=== PATIENT | male | born 1975 | race Caucasian/White ===

== ENCOUNTER 2018-01-03 15:52 | Emergency (ER) | payer BC ==
[~2018-01-03] VITALS: Ht 182.9 cm; Wt 225.0 kg
[~2018-01-03 15:52] MED LIST: CIPR-255 PO
[2018-01-03 15:56] VITALS: TEMP 36.6; Ht 182.9 cm; Wt 225.0 kg
[2018-01-03] MEDS ORDERED: KETOROLAC TROMETHAMINE 30 MG/ML VIAL IV STA (16:09)
[2018-01-03] MEDS ORDERED: SODIUM CHLORIDE 0.9% 1000ML 1,000 ML IV STA (16:09)
--- NOTE | 2018-01-03 16:45 | EMERGENCY ROOM VISIT NOTE ---
ED Visit Note First contact with patient: 16:00 CHIEF COMPLAINT: Right flank pain HISTORY OF PRESENTING ILLNESS: This is a 42-year-old male who presents to the emergency department with complaint of right flank pain that has been getting progressively worse over the past 2 days. He states he was seen here about a month ago and was diagnosed with a kidney stone on the right side. He states he was sent home with medications for the kidney stone and was also placed on Cipro to treat possible UTI, he states he completed the course of antibiotics. He states that the pain resolved a few days later, and he did not ever follow- up with the urologist. He also states he has not been straining his urine so he does not know if he passed the stone. He states the pain is a constant dull ache, with intermittent intense stabbing pains, worse with movement, better with rest, currently rates as 3/10. He has taken Tylenol for the pain with some improvement. He has not noticed any blood in his urine, but does note that his urine has been darker than usual. He denies any fevers or chills. He has had associated nausea and states that he has vomited several times due to the pain. He denies chest pain, shortness of breath, dizziness or syncope. He denies any unusual rash. REVIEW OF SYSTEMS: A complete 10 point review of systems was reviewed with the patient with pertinent positives and negatives as per history of present illness. All else were negative. PAST MEDICAL HISTORY: Kidney stone. No other significant past medical or surgical history. SOCIAL HISTORY: Lives at home. He denies tobacco use. ALLERGIES: No known allergies. PHYSICAL EXAM: CONSTITUTIONAL: Pleasant and cooperative. No acute distress, but appears uncomfortable. Mildly dehydrated, but otherwise well appearing and well nourished. HEENT: Normocephalic, atraumatic. Pupils equal, round and reactive to light, EOMI. TMs normal. Pharynx normal. Tacky mucous membranes. NECK: Supple, full active range of motion without discomfort. RESPIRATORY: Clear to auscultation bilaterally with no wheezing, crackles, rhonchi or stridor. Equal expansion bilaterally. CARDIOVASCULAR: Regular rate and rhythm with no murmurs, rubs or gallops. Normal peripheral perfusion. No edema. GASTROINTESTINAL: Right flank and right lower quadrant tenderness to palpation. The abdomen is otherwise soft, nontender, nondistended. Morbidly obese abdomen. No palpable masses or HSM. Bowel sounds present in all quadrants. Mild right-sided CVA tenderness, no left-sided CVA tenderness. MUSCULOSKELETAL: Full range of motion of all joints without discomfort. INTEGUMENTARY: No rash or other significant dermatologic conditions noted. NEUROLOGIC: Alert and oriented X 4 with normal affect. Normal strength and sensation in all 4 extremities. No focal neurologic deficits noted. Normal speech. Normal gait observed. ED COURSE AND MEDICAL DECISION MAKING: CC: Patient presenting with complaint of right flank pain DIFFERENTIAL DIAGNOSIS: Includes, but not limited to ureteral stone, UTI, pyelonephritis, infected stone, acute kidney injury, dehydration, among others. INTERPRETATION OF LABS: No leukocytosis, mild anemia, normal platelets, no significant electrolyte abnormalities, normal renal function. UA noting hematuria, no infection. IMAGING: ULTRASOUND KIDNEYS AND BLADDER CLINICAL HISTORY: Recently diagnosed obstructing right ureteral calculus. Assess right-sided hydronephrosis. COMPARISON STUDY: Abdominal CT dated 12/08/2017. TECHNIQUE: Real-time, grayscale, and color flow sonography of the kidneys and bladder is performed. Images are reviewed in the transverse and longitudinal planes. The examination is degraded by large body habitus. FINDINGS: Kidneys: The kidneys are normal in size and echotexture. The right kidney measures 12.6 x 6.7 x 8.1 cm and the left kidney measures 12.0 x 6.1 x 5.7 cm. No hydronephrosis is clearly identified. No shadowing renal calculi are seen. There is no sonographic evidence of contour deforming renal mass lesion. No perinephric fluid is identified. Bladder: The bladder is partially decompressed and grossly normal in appearance. Bilateral ureteral jets were seen. IMPRESSION: 1. The kidneys are normal in size and without hydronephrosis. 2. The bladder is partially decompressed. Both ureteral jets were seen. ----- KUB CLINICAL HISTORY: Right flank pain. Nephrolithiasis. FINDINGS: 3 AP supine abdominal radiographs are correlated with abdominal CT dated 12/08/2017. The examination is degraded by large body habitus. There is an 8 mm calcification projecting over the mid right ureter just above the transverse process of L4. This likely represents an obstructing ureteral stone when correlated with the 12/08/2017 CT scan. No additional calcifications are seen projecting over either kidney. There is no bowel obstruction. The bony structures appear intact. IMPRESSION: There is an 8 mm calcification projecting over the mid right ureter, likely representing an obstructing ureteral stone when correlated with the recent CT scan. MEDICATION RECONCILIATION: I attest that I have personally reviewed the patient 's current medication list. INITIAL VITAL SIGNS REVIEW: I reviewed the patient's initial vital signs and interpret them as follows: T: Afebrile; BP: Hypertensive; HR: Mildly tachycardic; RR: Within normal limits; Pulse Ox: Within normal limits on room air. Blood pressure screening: The patient was found to have an elevated blood pressure, which was felt to be situational. SUMMARY: Patient was evaluated at bedside, history and physical exam performed. Patient is alert and oriented, in no acute mildly uncomfortable, resting in the stretcher. Patient does have right flank and lower quadrant tenderness to palpation, the abdomen is otherwise benign. No acute abdomen. Orders were placed at bedside for labs, UA, IV fluids for hydration, IV Toradol for pain, KUB and renal ultrasound to evaluate for ureteral stone. Patient discussed with Dr. Stewart, who agrees with my assessment and plan. Labs and imaging reviewed as above. KUB consistent with ureteral stone, but ultrasound shows no evidence of hydronephrosis. Normal renal function and no UTI on lab workup. Patient reassessed multiple times throughout ED stay, he is remained stable, hypertension and tachycardia resolved after pain medication and fluids, and his pain is resolved after IV Toradol. Patient was updated on all results and plan for discharge, he was provided with referral to urology and encouraged to follow-up this week. He was provided with a urine strainer and educated regarding its use. Rx for Roscoe, Zofran, and naproxen were sent to pharmacy, patient was educated regarding these medications. Patient was also given strict return precautions should his symptoms worsen, he verbalized understanding. Patient was discharged home in stable condition and ambulatory. (Betty Abdi CRNP) First contact with patient: 16:00 (Levi Stewart M.D.) Current/Historical Medications Scheduled Naproxen (Naprosyn), 500 MG PO BID Ondasetron Odt (Zofran Odt), 4 MG SL Q6H Scheduled PRN Hydrocodone/Acetaminophen 5MG/325MG (Roscoe 5MG/325MG), 1-2 TABLET PO Q6H PRN for svr Allergies Coded Allergies: No Known Allergies (Unverified , 12/08/17) Vital Signs Date Time Temp Pulse Resp B/P (MAP) Pulse Ox O2 Delivery O2 Flow Rate FiO2 01/03/18 19:46 75 18 122/67 98 01/03/18 17:57 70 20 102/63 97 Room Air 01/03/18 16:58 84 01/03/18 15:56 36.6 93 20 183/96 95 Room Air (Levi Stewart M.D.) Laboratory Results 01/03/18 16:40 Red Blood Count 4.29, Mean Corpuscular Volume 92.1, Mean Corpuscular Hemoglobin 30.8, Mean Corpuscular Hemoglobin Concent 33.4, Mean Platelet Volume 9.4, Neutrophils (%) (Auto) 71.1, Lymphocytes (%) (Auto) 18.5, Monocytes (%) (Auto) 6.9, Eosinophils (%) (Auto) 3.0, Basophils (%) (Auto) 0.3, Neutrophils # (Auto) 6.46, Lymphocytes # (Auto) 1.68, Monocytes # (Auto) 0.63, Eosinophils # (Auto) 0.27, Basophils # (Auto) 0.03 01/03/18 16:40 Test 01/03/18 16:40 01/03/18 18:15 White Blood Count 9.09 K/uL (4.8-10.8) Red Blood Count 4.29 M/uL (4.7-6.1) Hemoglobin 13.2 g/dL (14.0-18.0) Hematocrit 39.5 % (42-52) Mean Corpuscular Volume 92.1 fL (80-100) Mean Corpuscular Hemoglobin 30.8 pg (25-34) Mean Corpuscular Hemoglobin Concent 33.4 g/dl (32-36) Platelet Count 263 K/uL (130-400) Mean Platelet Volume 9.4 fL (7.4-10.4) Neutrophils (%) (Auto) 71.1 % Lymphocytes (%) (Auto) 18.5 % Monocytes (%) (Auto) 6.9 % Eosinophils (%) (Auto) 3.0 % Basophils (%) (Auto) 0.3 % Neutrophils # (Auto) 6.46 K/uL (1.4-6.5) Lymphocytes # (Auto) 1.68 K/uL (1.2-3.4) Monocytes # (Auto) 0.63 K/uL (0.11-0.59) Eosinophils # (Auto) 0.27 K/uL (0-0.5) Basophils # (Auto) 0.03 K/uL (0-0.2) RDW Standard Deviation 43.8 fL (36.4-46.3) RDW Coefficient of Variation 13.2 % (11.5-14.5) Immature Granulocyte % (Auto) 0.2 % Immature Granulocyte # (Auto) 0.02 K/uL (0.00-0.02) Anion Gap 5.0 mmol/L (3-11) Est Creatinine Clear Calc Drug Dose 204.3 ml/min Estimated GFR () 120.1 Estimated GFR (Non- 103.6 BUN/Creatinine Ratio 16.2 (10-20) Calcium Level 8.6 mg/dl (8.5-10.1) Urine Color YELLOW Urine Appearance CLEAR (CLEAR) Urine pH 5.5 (4.5-7.5) Urine Specific Morgan 1.024 (1.000-1.030) Urine Protein NEG (NEG) Urine Glucose (UA) NEG (NEG) Urine Ketones TRACE (NEG) Urine Occult Blood 1+ (NEG) Urine Nitrite NEG (NEG) Urine Bilirubin NEG (NEG) Urine Urobilinogen NEG (NEG) Urine Leukocyte Esterase TRACE (NEG) Urine WBC (Auto) 1-5 /hpf (0-5) Urine RBC (Auto) 10-30 /hpf (0-4) Urine Hyaline Casts (Auto) 1-5 /lpf (0-5) Urine Epithelial Cells (Auto) 10-20 /lpf (0-5) Urine Bacteria (Auto) NEG (NEG) (Levi Stewart M.D.) Medications Administered Medications (Trade) Dose Ordered Sig/Echo Route Start Time Stop Time Status Last Admin Dose Admin Sodium Chloride 1,000 ml @ 999 mls/hr Q1H1M STAT IV 01/03/18 16:09 01/03/18 17:09 DC 01/03/18 16:09 999 MLS/HR Ketorolac Tromethamine (Toradol Inj) 15 mg NOW STAT IV 8/11/18 16:09 01/03/18 16:11 DC 01/03/18 16:57 15 MG Ondansetron HCl (ZOFRAN ODT 4MG Home Pack) 1 homepack UD ONCE PO 01/03/18 19:30 01/03/18 19:31 DC 01/03/18 19:38 1 HOMEPACK Acetaminophen/ Hydrocodone Bitart (Roscoe 5/325mg Home Pack) 1 homepack UD ONCE PO 01/03/18 19:30 01/03/18 19:31 DC 01/03/18 19:38 1 HOMEPACK (Levi Stewart M.D.) Departure Information Impression Primary Impression: Right flank pain Additional Impression: Right ureteral calculus Dispostion Home / Self-Care Condition GOOD Prescriptions Naproxen (Naprosyn) 500 Mg Tab 500 MG PO BID for 10 Days, #20 TAB Prov: Betty Abdi CRNP 01/03/18 Ondasetron Odt (ZOFRAN ODT) 4 Mg Tab 4 MG SL Q6H for Nausea, #6 TAB Prov: Betty Abdi CRNP 01/03/18 Hydrocodone/Acetaminophen 5MG/325MG (Roscoe 5MG/325MG) Tab 1-2 TABLET PO Q6H Y for svr, #20 TAB For Initial Treatment Prov: Betty Abdi CRNP 01/03/18 Referrals No Doctor, Assigned (PCP) Wilberto Wilkins, II., DO Patient Instructions ED Stone Renal W Colic, ED Strainer Urine, [facility] Additional Instructions You have been treated in the Emergency Department today for a Kidney Stone ( Nephrolithiasis). [] You have received pain medicine in the emergency department which impairs your ability to operate a vehicle. It is illegal for you to drive after receiving these medicines. You have been prescribed Roscoe to be used for pain control. This is a narcotic medication. You cannot drive or consume alcohol while on this medicine. This medicine should only be used for SEVERE pain that cannot be controlled with other pain medicines. You have been prescribed Zofran to be used for any nausea or vomiting. Take as prescribed. You have been prescribed extra strength naproxen tablets to be taken 1 tablet twice a day for your pain. Do not take any other NSAIDs such as ibuprofen, Aleve, or aspirin while you are taking this medication. For mild to moderate pain control, you may take regular strength (325mg/tab) Tylenol (acetaminophen) 2 tabs every 4-6 hours as needed. Do not exceed 10 tablets in a 24 hour period. Avoid taking more than 3000 mg of Tylenol per day. This includes any other sources of acetaminophen you may take on a regular basis. You have been provided a strainer and specimen collection cup. You should strain your urine to collect any passed stones. Your stones can be placed into the specimen cup and taken to your Urologist for further evaluation. You have been provided the contact information for the on-call Urologist. You should contact the Urologist's office Friday morning to establish a follow-up appointment from today's Emergency Department visit. Return to the Emergency Department if your symptoms persist despite the treatment plan outlined above or if you develop the following symptoms: Severe worsening pain that is not controlled with pain medications, fever, chills, large amounts of blood in your urine, inability to urinate for more than 8 hours , severe dizziness or passing out, or any other concerns. Work Instructions Return To Work: 3 days (Betty Abdi CRNP) Problem Qualifiers
[2018-01-03 16:58] LABS: BASO % 0.3 %; BASO ABS # 0.03 K/uL (0-0.2); EOS ABS # 0.27 K/uL (0-0.5); HEMATOCRIT 39.5 % (42-52); HEMOGLOBIN 13.2 g/dL (14.0-18.0); IG# 0.02 K/uL (0.00-0.02); LYMPH % 18.5 %; LYMPH ABS # 1.68 K/uL (1.2-3.4); MEAN CELL VOLUME 92.1 fL (80-100); MEAN CORPUSCULAR HEMOGLOBIN 30.8 pg (25-34); MEAN CORPUSCULAR HGB CONC 33.4 g/dl (32-36); MEAN PLATELET VOLUME 9.4 fL (7.4-10.4); MONO % 6.9 %; MONO ABS # 0.63 K/uL (0.11-0.59); NEUT % 71.1 %; NEUT ABS # 6.46 K/uL (1.4-6.5); PLATELET COUNT 263 K/uL (130-400); RED CELL DISTRIBUTION WIDTH CV 13.2 % (11.5-14.5); RED CELL DISTRIBUTION WIDTH SD 43.8 fL (36.4-46.3); WHITE BLOOD COUNT 9.09 K/uL (4.8-10.8)
--- NOTE | 2018-01-03 17:18 | DIAGNOSTIC IMAGING REPORT ---
ULTRASOUND KIDNEYS AND BLADDER CLINICAL HISTORY: Recently diagnosed obstructing right ureteral calculus. Assess right-sided hydronephrosis. COMPARISON STUDY: Abdominal CT dated 12/08/2017. TECHNIQUE: Real-time, grayscale, and color flow sonography of the kidneys and bladder is performed. Images are reviewed in the transverse and longitudinal planes. The examination is degraded by large body habitus. FINDINGS: Kidneys: The kidneys are normal in size and echotexture. The right kidney measures 12.6 x 6.7 x 8.1 cm and the left kidney measures 12.0 x 6.1 x 5.7 cm. No hydronephrosis is clearly identified. No shadowing renal calculi are seen. There is no sonographic evidence of contour deforming renal mass lesion. No perinephric fluid is identified. Bladder: The bladder is partially decompressed and grossly normal in appearance. Bilateral ureteral jets were seen. IMPRESSION: 1. The kidneys are normal in size and without hydronephrosis. 2. The bladder is partially decompressed. Both ureteral jets were seen. Electronically signed by: Bulmaro Orozco M.D. 01/03/2018 5:17 PM Dictated Date/Time: 01/03/2018 5:14 PM
[2018-01-03 17:19] LABS: CREATININE 0.91 mg/dl (0.60-1.40)
[2018-01-03 17:20] LABS: CALCIUM 8.6 mg/dl (8.5-10.1); POTASSIUM 4.1 mmol/L (3.5-5.1)
--- NOTE | 2018-01-03 17:56 | DIAGNOSTIC IMAGING REPORT ---
KUB CLINICAL HISTORY: Right flank pain. Nephrolithiasis. FINDINGS: 3 AP supine abdominal radiographs are correlated with abdominal CT dated 12/08/2017. The examination is degraded by large body habitus. There is an 8 mm calcification projecting over the mid right ureter just above the transverse process of L4. This likely represents an obstructing ureteral stone when correlated with the 12/08/2017 CT scan. No additional calcifications are seen projecting over either kidney. There is no bowel obstruction. The bony structures appear intact. IMPRESSION: There is an 8 mm calcification projecting over the mid right ureter, likely representing an obstructing ureteral stone when correlated with the recent CT scan. Electronically signed by: Bulmaro Orozco M.D. 01/03/2018 5:55 PM Dictated Date/Time: 01/03/2018 5:53 PM
[2018-01-03] MEDS ORDERED: ONDA4TAB10 SL (19:12)
[2018-01-03] MEDS ORDERED: HYDR-5688 PO (19:12)
[2018-01-03] MEDS ORDERED: NAPR-22 PO (19:12)
[2018-01-03] MEDS ORDERED: NORCO 5/325MG HOME PACK PO ONE (19:30)
[2018-01-03] MEDS ORDERED: ONDANSETRON HOME PACK 4MG OD TAB PO ONE (19:30)
[2018-01-03 19:46] VITALS: BP 122/67; PULSE 75; O2SAT 98
== END 2018-01-03 19:50 | disposition home or self-care (01) ==
LOC: C.EDB 15:53 → C.EDC 19:50
DX: R10.11 Right upper quadrant pain (principal); R10.31 Right lower quadrant pain; N20.1 Calculus of ureter; Z87.442 Personal history of urinary calculi

== ENCOUNTER → 2018-01-09 | Outpatient (CLI) | payer BC ==
[~2018-01-09] MED LIST changes: -CIPR-255 PO; +HYDR-5688 PO; +NAPR-22 PO; +ONDA4TAB10 SL
== END | disposition home or self-care (01) ==
LOC: C.LABSPEC 16:21
PROVIDERS: ATTEND Urology
DX: N20.0 Calculus of kidney (principal)